=== PATIENT | male | born 1940 | race Caucasian/White ===

== ENCOUNTER → 2017-11-15 | Outpatient (CLI) | payer MEDICARE ==
[~2017-11-15] VITALS: Ht 175.3 cm; Wt 108.0 kg
[~2017-11-15] MED LIST: ALBU8.5H8 IH; BUDE10.2 IH; CARV25 PO; DOXA4TAB3 PO; FINA5TAB41 PO; FURO20 PO; IPRNEB IH; LEVO50 PO; PHEN50TA2 PO; PRED10TA3 PO; SIMV40TA5 PO; VITAD1000 PO
[2017-11-15 12:47] VITALS: BP 111/59
== END | disposition home or self-care (01) ==
LOC: SRCNTR 11:58
PROVIDERS: ATTEND Internal Medicine Critical Care Medicine
DX: J44.1 Chronic obstructive pulmonary disease with (acute) exacerbation (principal); G47.33 Obstructive sleep apnea (adult) (pediatric); J96.10 Chronic respiratory failure, unspecified whether with hypoxia or hypercapnia; R56.1 Post traumatic seizures; E03.9 Hypothyroidism, unspecified; I10 Essential (primary) hypertension; J98.6 Disorders of diaphragm
CPT/HCPCS: G0463

== ENCOUNTER 2019-05-15 10:22 | Inpatient (IN) | payer MEDICARE ==
[~2019-05-15] VITALS: Ht 177.8 cm; Wt 99.0 kg
[~2019-05-15 10:22] MED LIST changes: +CHOL100018 PO; +FOLI1TAB15 PO; +GABA-531 PO; -PHEN50TA2 PO; +PHENY100 PO; +ROFL500T PO; +SIMV-46 PO; -SIMV40TA5 PO; -VITAD1000 PO
[2019-05-15] MEDS ORDERED: MELA3TAB66 PO (10:41)
[2019-05-15] MEDS ORDERED: SENN-176 PO (10:41)
[2019-05-15] MEDS ORDERED: ROFL500T PO (10:41)
[2019-05-15] MEDS ORDERED: ALBU8.5H8 IH (10:41)
[2019-05-15] MEDS ORDERED: FINA5TAB41 PO (10:41)
[2019-05-15] MEDS ORDERED: MOM30 PO (10:41)
[2019-05-15] MEDS ORDERED: TIOT185 IH (10:41)
[2019-05-15] MEDS ORDERED: IPRATROPIUM BROMIDE 0.5 MG/2.5 ML NEB SOLUTION NEB ONE ×2 (10:51→11:00)
[2019-05-15] MEDS ORDERED: ALBUTEROL SULFATE 5 MG/ML 20 ML NEB SOLN [BULK] NEB ONE ×2 (10:51→11:00)
[2019-05-15] MEDS ORDERED: ALBUTEROL SULFATE 2.5 MG/0.5 ML NEB SOLUTION NEB ONE ×2 (10:53→11:00)
[2019-05-15] MEDS ORDERED: FOLI1 PO (10:56)
[2019-05-15] MEDS ORDERED: CHOL100018 PO (10:56)
[2019-05-15] MEDS ORDERED: MethylPREDNISolone SOD SUCC 125 MG/2 ML VIAL IVP ONE (11:00)
[2019-05-15 11:20] LABS: BASOPHILS % (AUTO) 0.6 % (0.0-2.0); EOSINOPHILS % (AUTO) 3.5 % (1.0-6.0); HEMATOCRIT 39.2 % (41-53); HEMOGLOBIN 13.4 g/dL (13.5-17.5); MEAN CORPUSCULAR HEMOGLOBIN 30.8 pg (26.0-34.0); MEAN CORPUSCULAR HGB CONC 34.1 G/dL (31.0-37.0); MEAN CORPUSCULAR VOLUME 91 fL (80-100); MONOCYTES # (AUTO) 0.6 K/uL (0.1-1.0); MONOCYTES % (AUTO) 8.8 % (2.0-9.0); NEUTROPHILS % (AUTO) 58.1 % (40.0-70.0); PLATELET COUNT (AUTO) 168 K/uL (150-450); RED BLOOD CELL COUNT(AUTO) 4.33 MIL/uL (4.50-5.90)
[2019-05-15 11:33] LABS: INR 1.1 (0.9-1.1)
[2019-05-15 11:36] LABS: ANION GAP 6 mmol/L (8-16); CARBON DIOXIDE 33 mmol/L (22-29); CHLORIDE 100 mmol/L (98-107); CREATININE 0.87 mg/dL (0.60-1.30); GLUCOSE,RANDOM 135 mg/dL (70-110); POTASSIUM 4.4 mmol/L (3.5-5.1); SODIUM SERUM 139 mmol/L (136-145); UREA NITROGEN, BLOOD 20 mg/dL (7-18)
[2019-05-15 11:37] LABS: GLOMERULAR FILTR. RATE CALC > 60 mL/min (>60)
[2019-05-15 11:41] LABS: B-TYPE NATRIURETIC PEPTIDE 37 pg/mL (0-100)
[2019-05-15 11:42] LABS: ALANINE AMINOTRANSFERASE 23 U/L (12-78); ALBUMIN 3.9 g/dL (3.4-5.0); ALKALINE PHOSPHATASE 51 U/L (46-116); ASPARTATE AMINOTRANSFERASE 17 U/L (15-37); BILIRUBIN,TOTAL 0.6 mg/dL (0.1-1.0); LIPASE 72 U/L (73-393); TOTAL PROTEIN, SERUM 7.3 g/dL (6.4-8.2)
[2019-05-15 11:44] LABS: LACTIC ACID 0.6 mmol/L (0.4-2.0)
[2019-05-15] MEDS ORDERED: MAGNESIUM HYDROXIDE SUSPENSION 30 ML UDCUP PO PRN (12:15)
[2019-05-15] MEDS ORDERED: ACETAMINOPHEN 325 MG TABLET PO PRN (12:15)
[2019-05-15] MEDS ORDERED: IPRATROPIUM BROMIDE 0.5 MG/2.5 ML NEB SOLUTION NEB PRN (12:15)
[2019-05-15] MEDS ORDERED: ALBUTEROL SULFATE 2.5 MG/0.5 ML NEB SOLUTION NEB PRN (12:15)
[2019-05-15 13:12] LABS: PHENYTOIN (DILANTIN) 31.1 mcg/mL (10.0-20.0)
[2019-05-15] MEDS ORDERED: AZITHROMYCIN 500 MG/NS 250 ML IV SCH (14:00)
[2019-05-15 16:22] VITALS: BP 134/70
[2019-05-15] MEDS: MethylPREDNISolone SOD SUCC 125 MG/2 ML VIAL IVP SCH (18:25)
[2019-05-15] MEDS: MONTELUKAST SODIUM 10 MG TABLET PO SCH (18:25)
[2019-05-15] MEDS: HEPARIN SODIUM,PORCINE 5,000 UNITS/ML VIAL SQ SCH (18:25)
[2019-05-15 20:20] VITALS: BP 131/80
[2019-05-15] MEDS: DOCUSATE SODIUM 100 MG CAPSULE PO SCH (20:52)
[2019-05-16 00:23] VITALS: BP 135/75
[2019-05-16] MEDS: HEPARIN SODIUM,PORCINE 5,000 UNITS/ML VIAL SQ SCH ×2 (00:25→08:20)
[2019-05-16] MEDS: MethylPREDNISolone SOD SUCC 125 MG/2 ML VIAL IVP SCH ×2 (00:25→05:06)
[2019-05-16 04:32] VITALS: BP 136/101
[2019-05-16 07:32] VITALS: BP 114/59
[2019-05-16] MEDS: MONTELUKAST SODIUM 10 MG TABLET PO SCH (08:16)
[2019-05-16] MEDS: DOCUSATE SODIUM 100 MG CAPSULE PO SCH (08:16)
[2019-05-16] MEDS ORDERED: FAMOTIDINE 20 MG TABLET PO SCH (09:00)
[2019-05-16] MEDS ORDERED: ASPIRIN 81 MG CHEWABLE TABLET PO SCH (09:00)
[2019-05-16] MEDS ORDERED: ASPI81 PO (11:11)
[2019-05-16] MEDS ORDERED: AZIT250T9 IVPB (11:13)
[2019-05-16] MEDS ORDERED: AZITH500IV IV (11:22)
[2019-05-16] MEDS ORDERED: DOCU-275 PO (11:23)
[2019-05-16] MEDS ORDERED: FAMO20 PO (11:24)
[2019-05-16] MEDS ORDERED: MONT10TA21 PO (11:25)
[2019-05-16] MEDS ORDERED: HEPA500018 SQ (11:25)
[2019-05-16] MEDS ORDERED: SM40I IVP (11:26)
[2019-05-16] MEDS ORDERED: ACET-784 PO (11:27)
[2019-05-16] MEDS ORDERED: A20IH1 IH (11:30)
[2019-05-16] MEDS ORDERED: IPRNEB IH (11:35)
[2019-05-16] MEDS ORDERED: MOM30 PO (11:36)
== END 2019-05-16 12:40 | disposition short-term general hospital (02) | DRG 189 ==
LOC: EMS 10:25 → 5N 14:02
PROVIDERS: ADMIT Internal Medicine; ATTEND Internal Medicine
PROC: 5A09357 Assistance with Respiratory Ventilation, Less than 24 Consecutive Hours, Continuous Positive Airway Pressure (ICD-10-PCS; principal; 2019-05-15)
PROC: 5A09357 Assistance with Respiratory Ventilation, Less than 24 Consecutive Hours, Continuous Positive Airway Pressure (ICD-10-PCS; 2019-05-16)
DX: J96.21 Acute and chronic respiratory failure with hypoxia (principal); J44.1 Chronic obstructive pulmonary disease with (acute) exacerbation; N40.0 Benign prostatic hyperplasia without lower urinary tract symptoms; E03.9 Hypothyroidism, unspecified; T42.0X5A Adverse effect of hydantoin derivatives, initial encounter; G47.33 Obstructive sleep apnea (adult) (pediatric); E66.9 Obesity, unspecified; G40.909 Epilepsy, unspecified, not intractable, without status epilepticus; I10 Essential (primary) hypertension; J98.6 Disorders of diaphragm; Z87.891 Personal history of nicotine dependence; Z88.8 Allergy status to other drugs, medicaments and biological substances; Z82.5 Family history of asthma and other chronic lower respiratory diseases; Z99.81 Dependence on supplemental oxygen; Z79.899 Other long term (current) drug therapy
CPT/HCPCS: 83605; 83735; 87040; 87081; 93005; 94640; 94644; 94660; 99291; J0456; J1644; J2930